=== PATIENT | male | born 1980 | race Caucasian/White ===

== ENCOUNTER 2017-01-08 19:25 | Emergency (ER) | payer OTHER ==
[~2017-01-08] VITALS: Ht 177.8 cm; Wt 106.8 kg
[~2017-01-08 19:25] MED LIST: HYDR12.5 PO; OMPR20CCR PO
[2017-01-08 19:31] VITALS: BP 141/93; PULSE 108; RESP 16; O2SAT 96
--- NOTE | 2017-01-08 20:28 | ED.REPORT ---
HPI-General Illness Date of Service Jan 08, 2017 ED Provider: Jabier Plaza DO Patient is a 36 year old male who presents to the ED complaining of a right- sided headache and blurry vision that began 3 weeks ago. Patient states that the entire right side of his face and head are causing him pain. The patient reports that his vision is often blurry and double, with his pupils appearing to be unequal in size to him. He also reports having nasal discharge. Patient admits to nausea but denies a fever, chills, chest pain, shortness of breath, or vomiting. Visual acuity found to be 20/40 OU and 20/25 OD during triage. Patient presented in triage stating that he needs an MRI and was hostile to staff. However, he later apologized and he was pleasant during initial evaluation. Nursing Notes Stated Complaint: VISION, NAUSEA, PRESSURE IN HEAD Chief Complaint: General Complaint Allergies: Coded Allergies: No Known Allergies (Verified , 02/03/15) Scheduled Hydrochlorothiazide (Hydrochlorothiazide) 12.5 Mg Capsule 12.5 MG PO DAILY Omeprazole (Prilosec) 20 Mg Capcr 20 MG PO BID General Time Seen by MD: 20:27 Chief Complaint Headache Hx Obtained From: Patient Arrived By: Walk-in Sudden in Onset?: No Onset Occurred: More than a week ago... (3 weeks) Symptom Duration: Waxes and wanes Location: : Head Quality: Painful Severity: Current: Moderate Severity: Maximum: Severe Recent Healthcare: No recent doctor visit, No recent hospitalization Similar Sx Previous: No Past Medical History Past Medical History Depressive disorder with prior psychiatric admission for suicidal ideations History of oxycodone abuse chronic back pain with sciatica ADHD Reports: GERD Past Surgical History Denies Smoking History Current Every Day Smoker, Light Tobacco Smoker Social History Alcohol Use: Denies alcohol use Drug Use: Denies drug use Other Social History: Local resident 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 Physical Exam Vital Signs Vital Signs Date Time Temp Pulse Resp B/P Pulse Ox O2 Delivery O2 Flow Rate FiO2 01/08/17 22:25 36.6 118 20 133/86 98 Room Air 01/08/17 19:31 37.1 108 16 141/93 96 Room Air Initial VS: Reviewed Extremities: Vascular intact, Neuro intact Skin: Warm, Dry, No cyanosis Neurologic: Alert, Oriented, Nonfocal Psychiatric: Mood/affect normal, Behavior normal, Normal thought content General/Constitutional: Awake, Alert, No acute distress Appearance / Presentation: Positive: Obese Head / Eyes: Normocephalic Pupils: Positive: Anisocoria (mild) Eye Movement: Positive: EOM painful diplopia ENT: Airway patent, Pharynx NL Nose: Positive: Discharge nasal purulent Neck: Supple, Full range of motion Respiratory / Chest: Breath sounds NL, Breath sounds = bilat, No respiratory distress, No rales, No rhonchi, No wheezing Cardiovascular: Heart rate NL, Regular rhythm, Heart sounds NL Interpretation & Diagnostics Lab Results Interpretation Result Diagram: 01/08/17210901/08/172109 Test 01/08/17 21:10 White Blood Count 9.8th/mm3 (3.8-10.1) Red Blood Count 4.74mil/mm3 (4.40-5.80) Hemoglobin 14.3g/dL (13.8-17.2) Hematocrit 42.0% (41.0-50.0) Mean Corpuscular Volume 88.6fL (81-100) Mean Corpuscular Hemoglobin 30.2pg (27.0-35.0) Mean Corpuscular Hemoglobin Concent 34.0% (32.0-37.0) Red Cell Distribution Width 13.1% (12.3-15.4) Platelet Count 162bil/L (150-400) Neutrophils (%) (Auto) 43.8% (40-74) Lymphocytes (%) (Auto) 45.6% (14-46) Monocytes (%) (Auto) 8.4% (4-12) Eosinophils (%) (Auto) 1.7% (0-5) Basophils (%) (Auto) 0.4% (0-3) Sodium Level 142mEq/L (134-144) Potassium Level 3.9mEq/L (3.5-5.2) Chloride Level 102mEq/L (97-108) Carbon Dioxide Level 26mmol/L (18-29) Blood Urea Nitrogen 16mg/dL (6-20) Creatinine 0.97mg/dL (0.76-1.27) Estimat Glomerular Filtration Rate 94mL/min (>59) Glucose Level 104mg/dL (60-99) Calcium Level 8.8mg/dL (8.5-10.1) Total Bilirubin 0.3mg/dL (0.0-1.2) Aspartate Amino Transf (AST/SGOT) 27U/L (0-50) Alanine Aminotransferase (ALT/SGPT) 55U/L (0-44) Alkaline Phosphatase 70U/L (25-150) Total Protein 6.9g/dL (6.4-8.4) Albumin 4.3g/dL (3.4-5.0) Hold Veronica Top Tube Received (Received) CT Head Interpretation IMPRESSION: No acute intracranial abnormality. Because of clinical findings is not identified. No abnormality is identified in the region of the orbits to explain pain with movement. Dictated by: Honorio Quezada M.D. on 01/08/2017 at 21:22 Approved by: Honorio Quezada M.D. on 01/08/2017 at 21:26 Study: Head CT no contrast Interpretation / Wet Read by: Interpret - Radiologist Re-Eval/Medical Decision Source of Hx: Old records Time of Eval: 22:02 Patient Status: Condition improved Re-Evaluation/Progress Note: No acute problems found on his labs or CT scan. He will be started on antibiotics for sinusitis. Patient understands and agrees with the plan to be discharged home. Discharge instructions and follow-up discussed. All questions were addressed. Return to the ED warnings given. Counseled Regarding: Diagnosis, Lab results, Need for follow-up, When/why to return to ED Discharge & Departure Primary Impression: Headache Headache type: unspecified Headache chronicity pattern: acute headache Intractability: not intractable Qualified Code: R51 - Headache Additional Impression: Sinusitis Sinusitis location: unspecified location Chronicity: acute Recurrence: not specified Qualified Code: J01.90 - Acute sinusitis, unspecified Disposition: Home Discharge Condition All VS Reviewed: Yes Condition: Stable Patient Instructions: Acute Headache (ED), Sinusitis (ED) Additional Instructions: The CT scan of your head was normal. It is likely that your symptoms are due to sinusitis. Take Augmentin twice daily for the next 5 days. supervisor logging over-the- counter Flonase (nasal steroids) and use as directed. Take 1-2 [place] every 4-6 hours as needed for severe pain. Do not drink alcohol, drive, or consume acetaminophen while on this medication. You have been given a referral for ENT (Dr. Weldon). You should also follow-up with your doctor next week. If you do not have a doctor, you can follow-up with the [facility]. Return to the Emergency Department if you develop any new or worsening symptoms. Referrals: Ray Weldon MD [facility] Scribe Attestation Portions of this note were transcribed by Alisha Caruso. I, Dr. Plaza, personally performed the history, physical exam and medical decision-making; I reviewed and confirmed the accuracy of the information in the transcribed note. Signed by: Young Stuart, 01/08/2017 2209 Jabier Plaza DO Jan 08, 2017 20:28 Alisha Caruso Jan 08, 2017 20:56
[2017-01-08 21:19] LABS: BASOPHILS % (AUTO) 0.4 % (0-3); EOSINOPHILS % (AUTO) 1.7 % (0-5); MONOCYTES % (AUTO) 8.4 % (4-12); Mean Corpuscular Hemoglobin 30.2 pg (27.0-35.0); Mean Corpuscular Volume 88.6 fL (81-100); NEUTROPHILS % (AUTO) 43.8 % (40-74); Platelet Count 162 bil/L (150-400)
--- NOTE | 2017-01-08 21:27 | DRSVH ---
PROCEDURE: CT BRAIN WITHOUT CONTRAST ([id number]) INDICATIONS: R sided headache, aniscoria, retrobulbar pain TECHNIQUE: Noncontrast 4.5 mm thick angled axial sections acquired from the foramen magnum to the vertex, with c oronal reformats. COMPARISON: [facility], CT, BRAIN W/O CONTRAST, 12/13/2012, 23:20. FINDINGS: Image quality: Excellent. CSF spaces: Basal cisterns are patent. No extra-axial fluid collections. Ventricles are normal in size and shape. Brain: No midline shift. No intracranial masses or hemorrhage. Roa-white matter interface is norm al. Skull and face: Calvarium and visualized facial bones are intact, without suspicious lesions. Sinuses: Visualized sinuses and mastoids are clear. IMPRESSION: No acute intracranial abnormality. Because of clinical findings is not identified. No abnormality is identified in the region of the orbits to explain pain with movement. Dictated by: Honorio Quezada M.D. on 01/08/2017 at 21:22 Approved by: Honorio Quezada M.D. on 01/08/2017 at 21:26
[2017-01-08] MEDS ORDERED: HYDROcodone-APAP 5-325 mg Tablet PO ONE (21:45)
[2017-01-08] MEDS ORDERED: Amoxicillin-Clav 875-125 mg Tablet PO ONE (21:45)
[2017-01-08 22:25] VITALS: BP 133/86; PULSE 118; RESP 20; O2SAT 98
== END 2017-01-08 22:27 | disposition home or self-care (01) ==
LOC: SED 19:25
DX: R51 Headache (principal); J01.90 Acute sinusitis, unspecified; K21.9 Gastro-esophageal reflux disease without esophagitis; F17.200 Nicotine dependence, unspecified, uncomplicated

== ENCOUNTER 2017-03-10 20:33 | Emergency (ER) | payer OTHER ==
[~2017-03-10] VITALS: Ht 177.8 cm; Wt 240.0 kg
[2017-03-10 20:49] VITALS: BP 152/95; PULSE 86; RESP 18; O2SAT 100
--- NOTE | 2017-03-10 21:33 | ED.REPORT ---
HPI-Dental/Mouth Prob Date of Service Mar 10, 2017 ED Provider: Stephen Hernandez MD The patient is a 36 year old male with history of chronic pain and oxycodone abuse, who presents to the emergency department complaining of dental pain that has worsened over the last 2 days. He has noticed facial swelling and gum swelling. He denies fever, chills, nausea or vomiting. He has not been seen by a dentist in several years. Nursing Notes Stated Complaint: TEETH PAIN Chief Complaint: Dental Nursing Notes Reviewed: Yes Allergies: Coded Allergies: No Known Allergies (Verified , 02/03/15) Scheduled Hydrochlorothiazide (Hydrochlorothiazide) 12.5 Mg Capsule 12.5 MG PO DAILY Omeprazole (Prilosec) 20 Mg Capcr 20 MG PO BID Penicillin V Potassium (Penicillin V Potassium) 500 Mg Tablet 500 MG PO QID Scheduled PRN Ibuprofen (Ibuprofen) 600 Mg Tablet 600 MG PO QID PRN PRN For Pain General Time Seen by MD: 21:32 Chief Complaint Mouth pain, Tooth pain Hx Obtained From: Patient Arrived By: Walk-in Onset Occurred: 2 days ago Symptom Duration: Since onset Quality: Painful Severity: Current: Moderate Severity: Maximum: Moderate Recent Healthcare: No recent doctor visit, No recent hospitalization Similar Sx Previous: Yes Past Medical History Past Medical History Depressive disorder with prior psychiatric admission for suicidal ideations History of oxycodone abuse Chronic back pain with sciatica ADHD Reports: GERD Past Surgical History Denies Family History Noncontributory Smoking History Current Every Day Smoker, Light Tobacco Smoker Social History Alcohol Use: Denies alcohol use Drug Use: Denies drug use Other Social History: 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 Physical Exam Initial Vital Signs Vital Signs (First) Date Time Temp Pulse Resp B/P Pulse Ox O2 Delivery O2 Flow Rate FiO2 03/10/17 20:49 36.4 86 18 152/95 100 Room Air Initial VS: Reviewed Head / Eyes: Atraumatic, Normocephalic, PERRL Respiratory: Breath sounds normal, Clear to auscultation, No respiratory distress Cardiovascular: Regular rate & rhythm, Heart sounds normal, Intact distal pulses Abdomen / GI: Soft, Non-tender, No guarding, No rebound, No distention Back: No CVA tenderness Lymphatic: No lymphadenopathy Extremities: Vascular intact, Neuro intact, No swelling, No tenderness Skin: Warm, Dry, No cyanosis Neurologic: Alert, Oriented, Nonfocal Psychiatric: Mood/affect normal, Behavior normal, Normal thought content ENT: Airway patent, Mucous membranes moist, No peritonsillar abscess Dental / Gums: Positive: Dentition poor, Negative: Dental abscess Significant gum recession and multiple carries especially about his upper incisors. There is no dental abscess. No tonsillar swelling. Uvular is midline. He is handling his secretions well. Neck: Atraumatic, Supple, No meningismus, Full range of motion, No swelling, Non-tender, No midline vertebral tend General/Constitutional: Awake, Alert, Cooperative Re-Eval/Medical Decision Med Decision/Clinical Course The patient is a 36 year old male with history of chronic pain and oxycodone abuse, who presents to the emergency department complaining of dental pain that has worsened over the last 2 days. He has noticed facial swelling and gum swelling. He denies fever, chills, nausea or vomiting. He has not been seen by a dentist in several years. Here he is afebrile and hemodynamically stable with examination as above. Overall presentation was consistent with dental caries. Considered other possible causes of dental pain including periapical abscess, gingivitis, Brian's angina, sinusitis, and molar impaction but these are unlikely based on the history and exam. Discussed with the patient the low cost clinic resources available and provided list on discharge. Also reviewed precautions for return to the ED and the importance of f/u with a dentist, which he agreed to do. He was prescribed ibuprofen for pain and treated with Toradol here. Prescribed a course of penicillin as I am not able to definitively rule out any presence of periapical or small abscess. Of note patient requested IV Dilaudid for his pain here in the emergency room which I opted not to administer. Source of Hx: Old records Re-Evaluation/Progress : Time of Eval: 21:42 Re-Evaluation/Progress Note: Discussed plan for discharge. All questions were addressed. Counseled Regarding: Diagnosis, Need for follow-up, When/why to return to ED Discharge & Departure Primary Impression: Dental caries Additional Impressions: Pain due to dental caries Opiate dependence Substance use status: uncomplicated Qualified Code: F11.20 - Opioid dependence, uncomplicated Disposition: Home Discharge Condition All VS Reviewed: Yes Condition: Stable Patient Instructions: Dental Caries (ED) Additional Instructions: Thank you for seeking care at the emergency room. Our primary goal today in the ED was to evaluate you for any life-threatening conditions. Your evaluation was reassuring. You will be discharged with a prescription for Toradol and antibiotics. You should follow-up with a dentist in the next few days. You should return to the ED immediately if you develop fevers, vomiting, or any other concerning signs or symptoms. Thank you for letting us partake in your care today. Referrals: NOPCP (PCP) Scribe Attestation Portions of this note were transcribed by Asha Coulter. I, Dr. Hernandez personally performed the history, physical exam and medical decision-making; I reviewed and confirmed the accuracy of the information in the transcribed note. Signed by: Young Stearns, 03/10/2017 at 2200. Stephen Hernandez MD Mar 10, 2017 21:33 Asha Coulter Mar 10, 2017 21:37
[2017-03-10] MEDS ORDERED: PENI500T PO (21:47)
[2017-03-10] MEDS ORDERED: IBUP-1827 PO (21:47)
[2017-03-10 22:23] VITALS: BP 132/78; PULSE 76; RESP 14; O2SAT 98
== END 2017-03-10 22:24 | disposition home or self-care (01) ==
LOC: SED 20:33
DX: K02.9 Dental caries, unspecified (principal); K08.89 Other specified disorders of teeth and supporting structures; F11.20 Opioid dependence, uncomplicated; K21.9 Gastro-esophageal reflux disease without esophagitis; F17.210 Nicotine dependence, cigarettes, uncomplicated
CPT/HCPCS: 96372; 99283; J1885